=== PATIENT | male | born 1955 | race Caucasian/White ===

== ENCOUNTER 2021-09-29 16:52 | Emergency (ER) | payer BC ==
[~2021-09-29] VITALS: Ht 170.2 cm; Wt 63.5 kg
[2021-09-29] MEDS ORDERED: KETOROLAC TROMETHAMINE 30 MG INJ IM ONE (17:00)
[2021-09-29] MEDS ORDERED: DIAZEPAM 2 MG TABLET PO ONE (17:00)
[2021-09-29] MEDS ORDERED: KETOROLAC TROMETHAMINE 30 MG INJ ONE (17:15)
[2021-09-29] MEDS ORDERED: CYCL10TA9 PO (17:16)
[2021-09-29] MEDS ORDERED: DIAZEPAM 5 MG TABLET ONE (17:16)
[2021-09-29] MEDS ORDERED: NAPR-1164 PO (17:16)
--- NOTE | 2021-09-29 17:58 | NUR ---
Patient discharged to home in stable condition. Written and verbal after care instructions given. Patient verbalizes understanding of instructions. Stressed follow up or return to ER for worsening s/s.
== END 2021-09-29 17:58 | disposition home or self-care (01) ==
LOC: ER 16:52
DX: M54.41 Lumbago with sciatica, right side (principal)
CPT/HCPCS: 96372; 99283; J1885; A4663